=== PATIENT | male | born 1975 ===

== ENCOUNTER 2018-08-15 01:29 | Emergency (ER) | payer SELFPAY ==
[2018-08-15 01:29] VITALS: BMI 25.7
[2018-08-15 03:04] LABS: SQUAMOUS EPITHIAL < 1 /hpf (0-5); URINE BILIRUBIN NEGATIVE (NEGATIVE); URINE BLOOD NEGATIVE (NEGATIVE); URINE CLARITY SLIGHTY-CLOUDY (Clear); URINE COLOR AMBER (YELLOW); URINE GLUCOSE (UA) NEG (NEGATIVE); URINE LEUKOCYTE ESTERASE TRACE Leu/uL (Negative); URINE PROTEIN 100 mg/dL (NEGATIVE); URINE UROBILINOGEN 0.2-1.0 mg/dL (0.2-1.0)
--- NOTE | 2018-08-15 03:52 | ED PDOC ---
HPI: Male Pain Time Seen by Provider: 08/15/18 01:46 Chief Complaint (Nursing): Male Genitourinary Chief Complaint (Provider): Burning on urination; redness of right eye History Per: Patient History/Exam Limitations: no limitations Onset/Duration Of Symptoms: Days Current Symptoms Are (Timing): Still Present Additional Complaint(s): 43 yo male with no medical problems presents for evaluation of burning on urination x 3 days and redness in the right eye for 2 days. Pt denies N/V/D. Pt denies fever. Pt reports intermittent chills. Pt denies change in vision. Past Medical History Vital Signs: Last Vital Signs Temp 99.1 F 08/15/18 01:47 Pulse 81 08/15/18 01:47 Resp 18 08/15/18 01:47 BP 120/76 08/15/18 01:47 Pulse Ox 97 08/15/18 01:47 Primary Care Provider: FAMILY PROVIDER,NO - Family History Family History: States: Unknown Family Hx - Immunization History Hx Tetanus Toxoid Vaccination: No Hx Influenza Vaccination: No Hx Pneumococcal Vaccination: No - Home Medications Home Medications: Ambulatory Orders Medication Instructions Recorded DiphenhydrAMINE [Benadryl] 50 mg PO Q6H #20 cap 12/21/17 Famotidine [Pepcid] 20 mg PO DAILY #10 tab 12/21/17 predniSONE [Prednisone] 40 mg PO DAILY #8 tab 12/21/17 Doxycycline Monohydrate 100 mg PO BID #20 tablet 08/15/18 Polymyxin/Trimethoprim Sulfate 1 drop XX Q6H 10 Days bottle 08/15/18 [Polytrim Ophth Soln] - Allergies Allergies/Adverse Reactions: Allergies Allergy/AdvReac Type Severity Reaction Status Date / Time No Known Allergies Allergy Verified 12/21/17 00:05 Physical Exam - Reviewed Nursing Documentation Reviewed: Yes Vital Signs Reviewed: Yes - Physical Exam Appears: Positive for: Well, Non-toxic, No Acute Distress Head Exam: Positive for: ATRAUMATIC, NORMAL INSPECTION, NORMOCEPHALIC Skin: Positive for: Normal Color, Warm, DRY Eye Exam: Positive for: EOMI, PERRL, Conjunctival injection. Negative for: Normal appearance, Scleral icterus ENT: Positive for: Normal ENT Inspection Neck: Positive for: Normal, Painless ROM Cardiovascular/Chest: Positive for: Regular Rate, Rhythm Respiratory: Positive for: Normal Breath Sounds. Negative for: Accessory Muscle Use, Respiratory Distress Gastrointestinal/Abdominal: Positive for: Normal Exam, Soft. Negative for: Tenderness Back: Positive for: Normal Inspection Extremity: Positive for: Normal ROM Neurological/Psych: Positive for: Awake, Alert, Normal Tone - Laboratory Results Lab Results: Urine Color Jenny (YELLOW) 08/15/18 02:40 Urine Clarity Slighty-cloudy (Clear) 08/15/18 02:40 Urine pH 5.0 (5.0-8.0) 08/15/18 02:40 Ur Specific [place] 1.029 (1.003-1.030) 08/15/18 02:40 Urine Protein 100 mg/dL (NEGATIVE) 08/15/18 02:40 Urine Glucose (UA) Neg mg/dL (NEGATIVE) 08/15/18 02:40 Urine Ketones Negative mg/dL (NEGATIVE) 08/15/18 02:40 Urine Blood Negative (NEGATIVE) 08/15/18 02:40 Urine Nitrate Negative (NEGATIVE) 08/15/18 02:40 Urine Bilirubin Negative (NEGATIVE) 08/15/18 02:40 Urine Urobilinogen 0.2-1.0 mg/dL (0.2-1.0) 08/15/18 02:40 Ur Leukocyte Esterase Trace Francisco/uL (Negative) 08/15/18 02:40 Urine RBC (Auto) 6 /hpf (0-3) H 08/15/18 02:40 Urine Microscopic WBC 9 /hpf (0-5) H 08/15/18 02:40 Ur Squamous Epith Cells < 1 /hpf (0-5) 08/15/18 02:40 - ECG O2 Sat by Pulse Oximetry: 97 Pulse Ox Interpretation: Normal Disposition - Clinical Impression Clinical Impression: Dysuria - Patient ED Disposition Is Patient to be Admitted: No - Disposition Disposition: Routine/Home Disposition Time: 03:53 Condition: GOOD Prescriptions: Doxycycline Monohydrate 100 mg PO BID #20 tablet Polymyxin/Trimethoprim Sulfate [Polytrim Ophth Soln] 1 drop XX Q6H 10 Days bottle Instructions: Dysuria, Adult (DC)
[2018-08-15 04:39] VITALS: BP 121/80; PULSE 67; RESP 16; TEMP 98.5; O2SAT 100
== END 2018-08-15 04:38 | disposition home or self-care (01) ==
LOC: H.ER 01:29
DX: R30.0 Dysuria (principal)